=== PATIENT | female | born 1965 | race Caucasian/White ===

== ENCOUNTER 2020-07-02 12:46 | Outpatient (CLI) | payer OTHER, SELFPAY ==
--- NOTE | 2020-07-02 12:56 | XR_ITS ---
WS: [id number] LUMBAR SPINE: 3 VIEWS TECHNIQUE: AP, lateral and L5-S1 spot. HISTORY: M79.10 - Myalgia, unspecified site COMPARISON: None available. Mild RIGHT convex curvature lumbar spine and increased lumbar lordosis. No fracture. Mild narrowing of the disc spaces throughout the lumbar spine. Mild irregularity along the superior e ndplate of L3. Pedicles are all identified. SI joints are symmetric bilaterally. No soft tissue abnormalities. XR/XR lumbar spine 2-3V* [id number] IMPRESSION: Mild degenerative disc disease. No fractures.
== END 2020-07-02 12:47 | disposition home or self-care (01) ==
PROVIDERS: PCP Nurse Practitioner; Visit Provider Nurse Practitioner
DX: M79.10 Myalgia, unspecified site (principal); M51.36 Other intervertebral disc degeneration, lumbar region
CPT/HCPCS: 72100

== ENCOUNTER 2021-05-13 15:35 | Outpatient (CLI) | payer OTHER, SELFPAY ==
--- NOTE | 2021-05-13 | XR_ITS ---
WS: [id number] Right ankle, 3 views, 05/13/2021 Clinical Data: RIGHT ANKLE PAIN Comparison: None. Findings: There is a nondisplaced fracture of the tip of the lateral malleolus. There is soft tissue swelling o tomy the fracture site. The medial malleolus is intact. The ankle mortise is unremarkable. XR/XR ankle RT min 3V* [id number] Impression: Undisplaced fracture tip of right lateral malleolus.
== END 2021-05-13 15:36 | disposition home or self-care (01) ==
PROVIDERS: PCP Family Medicine; Visit Provider Family Medicine
DX: S82.64XA Nondisplaced fracture of lateral malleolus of right fibula, initial encounter for closed fracture (principal); X58.XXXA Exposure to other specified factors, initial encounter
CPT/HCPCS: 73610

== ENCOUNTER → 2022-02-15 09:31 | Outpatient (BNVA) | payer OTHER, SELFPAY | PROVIDERS: PCP Family Medicine; Visit Provider Family Medicine | DX: Z00.00 Encounter for general adult medical examination without abnormal findings (principal); E03.9 Hypothyroidism, unspecified | CPT/HCPCS: 80053; 80061; 84443 ==

== ENCOUNTER → 2022-09-08 12:53 | Outpatient (BNVA) | payer OTHER, SELFPAY | PROVIDERS: PCP Family Medicine; Visit Provider Family Medicine | DX: E03.9 Hypothyroidism, unspecified (principal) | CPT/HCPCS: 84443 ==

== ENCOUNTER 2023-02-13 09:46 | Outpatient (CLI) | payer OTHER, SELFPAY ==
--- NOTE | 2023-02-13 09:56 | MM_ITS ---
WS: [id number] BILATERAL SCREENING DIGITAL TOMOSYNTHESIS MAMMOGRAM WITH CAD HISTORY: Z00.00 - Encounter for general adult medical examination ... COMPARISON: 12/13/2019 and 09/24/2018 and 11/30/2017 Bilateral CC and MLO views with tomosynthesis and synthetic mammography submitted. Computer aided det ection analyzed. Breast composition: There are scattered areas of fibroglandular density. No suspicious masses, microc alcifications or architectural distortion. Stable nodule central and inferior to the LEFT nipple most consistent with a benign lymph node. IMPRESSION: MM/[place] [id number] BI-RADS: 2-Benign FOLLOW UP: 1 Year Follow-up
== END 2023-02-13 09:47 | disposition home or self-care (01) ==
LOC: RAD 09:47
PROVIDERS: PCP Family Medicine; Visit Provider Family Medicine
DX: Z12.31 Encounter for screening mammogram for malignant neoplasm of breast (principal); Z00.00 Encounter for general adult medical examination without abnormal findings
CPT/HCPCS: 77063; 77067

== ENCOUNTER → 2023-02-27 09:19 | Outpatient (BNVA) | payer OTHER, SELFPAY | PROVIDERS: PCP Family Medicine; Visit Provider Family Medicine | DX: E03.9 Hypothyroidism, unspecified (principal); Z00.00 Encounter for general adult medical examination without abnormal findings; Z13.6 Encounter for screening for cardiovascular disorders | CPT/HCPCS: 80053; 80061; 84443 ==

== ENCOUNTER → 2023-09-18 08:57 | Outpatient (BNVA) | payer OTHER, SELFPAY | PROVIDERS: PCP Family Medicine; Visit Provider Family Medicine | DX: E03.9 Hypothyroidism, unspecified (principal) | CPT/HCPCS: 84443 ==

== ENCOUNTER → 2024-03-26 10:03 | Outpatient (BNVA) | payer OTHER, SELFPAY | PROVIDERS: PCP Family Medicine; Visit Provider Family Medicine | DX: Z00.00 Encounter for general adult medical examination without abnormal findings (principal); E03.9 Hypothyroidism, unspecified | CPT/HCPCS: 80053; 80061; 84443 ==